=== PATIENT | female | born 1965 | race Caucasian/White ===

== ENCOUNTER → 2020-08-06 | Day surgery (SDC) | payer MEDICARE, OTHER ==
[~2020-08-06] MED LIST: AMLODIPINE BES2.5 MG PO; APPLE CIDER VI600 MG PO; ATORVASTATIN CA20 MG PO; BIOTIN2500 MCG PO; CELEXA20 MG PO; EPINEPHRINE HCL 1:1000 1ML 1 MG/ML AMP ONE; FEMARA2.5 MG PO; LIDOCAINE 1% W/EPINEPHRINE 20 ML VIAL ONE; LIDOCAINE HCL 2% LOCAL INJ 5 ML SDV VIAL INJ ONE; LINZESS72 MCG PO; LYRICA150 MG PO; NEXIUM40 MG PO; OXYMETAZOLINE HCL 0.05% NAS 1 SPRAY BTL ONE; POVIDONE IODINE 0.05% 0.05 % ML PO ONE; PROPOFOL IV EMULSION 10 MG/ML 20 ML VIAL ONE; SUPER C PO; TRIAMTERENE-HCTZ1 EA PO; VITAMIN D350 MCG PO; XYZAL5 MG PO
[2020-08-06 08:35] VITALS: BP 119/84
== END | disposition home or self-care (01) ==
LOC: OR 05:24
PROVIDERS: ATTEND Otolaryngology Otolaryngology/Facial Plastic Surgery
DX: G47.33 Obstructive sleep apnea (adult) (pediatric) (principal); G89.29 Other chronic pain; K21.9 Gastro-esophageal reflux disease without esophagitis; I10 Essential (primary) hypertension; F32.9 Major depressive disorder, single episode, unspecified; Z88.6 Allergy status to analgesic agent; Z88.8 Allergy status to other drugs, medicaments and biological substances; Z01.810 Encounter for preprocedural cardiovascular examination; Z85.41 Personal history of malignant neoplasm of cervix uteri
CPT/HCPCS: 31231; 31575; 93005; J2001; J2704; J0171

== ENCOUNTER 2020-12-24 09:55 | Observation (INO) | payer MEDICARE, OTHER ==
[~2020-12-24] VITALS: Ht 165.1 cm; Wt 64.9 kg
[~2020-12-24 09:55] MED LIST changes: +B COMPLEX1 EACH PO; -EPINEPHRINE HCL 1:1000 1ML 1 MG/ML AMP ONE; +LEXAPRO20 MG PO; -LIDOCAINE 1% W/EPINEPHRINE 20 ML VIAL ONE; -LIDOCAINE HCL 2% LOCAL INJ 5 ML SDV VIAL INJ ONE; -OXYMETAZOLINE HCL 0.05% NAS 1 SPRAY BTL ONE; +PANTOPRAZOLE SO40 MG PO; -POVIDONE IODINE 0.05% 0.05 % ML PO ONE; -PROPOFOL IV EMULSION 10 MG/ML 20 ML VIAL ONE; +TIZANIDINE HCL4 M1 PO; +VITAMIN C1000 MG PO; +ZINC PO
[2020-12-24 11:28] LABS: INR 0.91; PROTHROMBIN TIME 12.5 seconds (11.9-14.5)
[2020-12-24 11:29] LABS: PARTIAL THROMBOPLASTIN TIME 31.8 seconds (23.8-35.5)
[2020-12-24] MEDS ORDERED: BUPIVACAINE HCL 0.5% INJ 30 ML VIAL INJ ONE (12:31)
[2020-12-24] MEDS ORDERED: LIDOCAINE 1% W/EPINEPHRINE 20 ML VIAL ONE (12:31)
[2020-12-24] MEDS ORDERED: MEPERIDINE HCL INJ 25 MG/ML VIAL ONE (14:35)
[2020-12-24] MEDS ORDERED: PROMETHAZINE HCL (IM) 25 MG/ML VIAL IM ONE (14:35)
[2020-12-24] MEDS ORDERED: ONDANSETRON HCL INJ 2MG/ML 2ML 2 MG/ML VIAL ONE (14:35)
[2020-12-24] MEDS ORDERED: ACETAMINOPHEN/CODEINE 300MG - 30MG TAB PO PRN (16:15)
[2020-12-24] MEDS ORDERED: MEPERIDINE HCL INJ 25 MG/ML VIAL IV PRN (16:15)
[2020-12-24 16:19] VITALS: BP 137/96
[2020-12-24 16:20] VITALS: BP 137/96
[2020-12-24 16:25] VITALS: BP 137/96
[2020-12-24] MEDS: LACTATED RINGER'S 1,000 ML INJ SCH (16:54)
[2020-12-24 20:00] VITALS: BP 148/99
[2020-12-24] MEDS: PROMETHAZINE 25MG/ NS 50ML (IV) IV PRN (20:52)
[2020-12-24] MEDS ORDERED: SODIUM CHLORIDE 0.9% 250ML 250 ML ONE (21:39)
[2020-12-24] MEDS ORDERED: ACETAMINOPHEN/CODEINE ELIX 120-12 MG/5 ML UDC PO PRN (23:45)
[2020-12-25] VITALS: BP 132/97
[2020-12-25] MEDS: LACTATED RINGER'S 1,000 ML INJ SCH ×2 (00:35→08:55)
[2020-12-25] MEDS: PROMETHAZINE 25MG/ NS 50ML (IV) IV PRN (03:43)
[2020-12-25 04:00] VITALS: BP 125/86
[2020-12-25 07:21] VITALS: BP 127/88
[2020-12-25 08:04] VITALS: BP 127/88
== END 2020-12-25 09:26 | disposition home or self-care (01) ==
LOC: OR 09:55 → PACU V 15:30 → MED/SURG 15:51
PROVIDERS: ADMIT Otolaryngology Otolaryngology/Facial Plastic Surgery; ATTEND Otolaryngology Otolaryngology/Facial Plastic Surgery
DX: G47.33 Obstructive sleep apnea (adult) (pediatric) (principal); I10 Essential (primary) hypertension; Z88.5 Allergy status to narcotic agent; K21.9 Gastro-esophageal reflux disease without esophagitis; K58.9 Irritable bowel syndrome, unspecified; R06.83 Snoring; Z01.810 Encounter for preprocedural cardiovascular examination; Z01.812 Encounter for preprocedural laboratory examination
CPT/HCPCS: 36415; 42145; 85610; 85730; 88302; 88304; 93005; G0378 ×2; J2175; J2405; J2550 ×2; J7050; J7121